=== PATIENT | male | born 1960 | race African-American/Black ===

== ENCOUNTER 2018-02-01 11:16 | Inpatient (IN) | payer OTHER ==
[~2018-02-01] VITALS: Ht 170.2 cm; Wt 57.6 kg
[2018-02-01 11:24] VITALS: BP 185/103
[2018-02-01 12:10] LABS: BASOPHILS % (AUTO) 1.5 % (0.0-2.0); EOSINOPHILS % (AUTO) 0.8 % (0.0-3.0); HEMATOCRIT 57.2 % (42.0-52.0); LYMPHOCYTES % (AUTO) 16.9 % (20.0-45.0); MEAN CORPUSCULAR VOLUME 85 FL (80-99); MONOCYTES % (AUTO) 13.9 % (1.0-10.0); PLATELET COUNT 259 K/UL (150-450); RED BLOOD COUNT 6.73 M/UL (4.70-6.10); RED CELL DISTRIBUTION WIDTH 13.6 % (11.6-14.8); WHITE BLOOD COUNT 10.3 K/UL (4.8-10.8)
[2018-02-01 12:16] LABS: ANION GAP 10 mmol/L (5-15); BLOOD UREA NITROGEN 14 mg/dL (7-18); CALCIUM 10.3 MG/DL (8.5-10.1); CARBON DIOXIDE 28 MMOL/L (21-32); CHLORIDE 97 MMOL/L (98-107); CREATININE 0.9 MG/DL (0.55-1.30); POTASSIUM 4.1 MMOL/L (3.5-5.1); SODIUM 135 MMOL/L (136-145)
[2018-02-01 12:20] LABS: ALANINE AMINOTRANSFERASE 27 U/L (12-78); ALBUMIN 3.9 G/DL (3.4-5.0); ALBUMIN/GLOBULIN RATIO 0.9 (1.0-2.7); ALKALINE PHOSPHATASE 95 U/L (46-116); ASPARTATE AMINO TRANSFERASE 18 U/L (15-37); BILIRUBIN,TOTAL 0.6 MG/DL (0.2-1.0)
[2018-02-01] MEDS ORDERED: Morphine Sulfate 4mg/ml Inj (IV USE ONLY) IVP ONE (12:30)
--- NOTE | 2018-02-01 13:20 | Diagnostic Imaging Report ---
Indication: Chest pain Technique: One view of the chest Comparison: none Findings: Lungs and pleural spaces are clear. Heart size is normal Impression: No acute process
[2018-02-01] MEDS ORDERED: Nitroglycerin Subl 0.4mg tab SL PRN (14:32)
[2018-02-01 14:51] LABS: APPEARANCE,URINE CLEAR; BILIRUBIN, URINE NEGATIVE (NEGATIVE); COLOR,URINE PALE YELLOW; GLUCOSE, URINE (UA) NEGATIVE (NEGATIVE); KETONES,URINE 1+ (NEGATIVE); LEUKOCYTE ESTERASE ,URINE 1+ (NEGATIVE); NITRITE,URINE NEGATIVE (NEGATIVE); PH,URINE 6.5 (4.5-8.0); PROTEIN,URINE 1+ (NEGATIVE); UROBILINOGEN,URINE NORMAL MG/DL (0.0-1.0)
[2018-02-01 15:00] VITALS: BP 170/98
--- NOTE | 2018-02-01 15:29 | Emergency Room Report ---
History of Present Illness General Chief Complaint: Vomiting Source: Patient Present Illness HPI 57-year-old male presents ED complaining of chest pain and abdominal pain which started this morning. Brought in by EMS. Pain is sharp, 7 out of 10, nonradiating. Denies shortness of breath. Notes nausea and vomiting. Notes history of hypertension. Blood pressure elevated as per triage. Denies headache or blurry vision. Denies neck stiffness. No other aggravating relieving factors. Denies any other associated symptoms Allergies: Coded Allergies: No Known Allergies (Unverified , 02/01/18) Patient History Past Medical History: DM, HTN Past Surgical History: none Pertinent Family History: none Social History: Denies: smoking, alcohol use, drug use Immunizations: UTD Reviewed Nursing Documentation: PMH: Agreed; PSxH: Agreed Nursing Documentation-PMH Hx Hypertension: Yes Hx Diabetes: Yes Review of Systems All Other Systems: negative except mentioned in HPI Physical Exam Vital Signs Date Time Temp Pulse Resp B/P (MAP) Pulse Ox O2 Delivery O2 Flow Rate FiO2 02/01/18 11:13 97.8 84 16 185/103 98 Room Air 97.9 Sp02 EP Interpretation: reviewed, normal General Appearance: no apparent distress, alert, GCS 15, non-toxic Head: normocephalic, atraumatic Eyes: bilateral eye normal inspection, bilateral eye PERRL ENT: hearing grossly normal, normal pharynx, no angioedema, normal voice Neck: full range of motion, supple/symm/no masses Respiratory: chest non-tender, lungs clear, normal breath sounds, speaking full sentences Cardiovascular #1: regular rate, rhythm, no edema Cardiovascular #2: 2+ carotid (R), 2+ carotid (L), 2+ radial (R), 2+ radial (L) , 2+ dorsalis pedis (R), 2+ dorsalis pedis (L) Gastrointestinal: normal bowel sounds, non tender, soft, non-distended, no guarding, no rebound Rectal: deferred Genitourinary: normal inspection, no CVA tenderness Musculoskeletal: back normal, gait/station normal, normal range of motion, non- tender Neurologic: alert, oriented x3, responsive, motor strength/tone normal, sensory intact, speech normal Psychiatric: judgement/insight normal, memory normal, mood/affect normal, no suicidal/homicidal ideation Reflexes: 3+ bicep (R), 3+ bicep (L), 3+ tricep (R), 3+ tricep (L), 3+ knee (R) , 3+ knee (L) Skin: normal color, no rash, warm/dry, well hydrated Lymphatic: no adenopathy Medical Decision Making Diagnostic Impression: Primary Impression: Hypertensive urgency Additional Impression: Chest pain Qualified Codes: R07.9 - Chest pain, unspecified ER Course Hospital Course 57-year-old male presents ED complaining of Chest pain, elevated BP Differential diagnoses include: PA/unstable angina, CVA/TIA, hypertensive urgency Clinical course Patient placed on stretcher. on residential monitor. After initial history and physical I ordered labs, EKG, chest x-ray, pain meds labs reviewed- no leukocytosis, hemoglobin/hematocrit stable, electrolytes okay , troponins negative. Chest x-ray- unremarkable EKG - NSR, no acute ischemic changes interpreted by me Case discussed with Dr. Goyal and he agreed to accept the patient to his service for further care and support I. I feel this is a highly complex case requiring extensive working including EKG/Rhythm strip, Xray/CT/US, Blood/urine lab work, repeat exams while in ED, and administration of strong opiates/narcotics for pain control, admission to hospital or close patient follow up. Diagnosis - hypertensive urgency, chest pain admitted to telemetry in serious condition Labs Test 02/01/18 11:40 02/01/18 14:20 White Blood Count 10.3 K/UL (4.8-10.8) Red Blood Count 6.73 M/UL (4.70-6.10) Hemoglobin 19.0 G/DL (14.2-18.0) Hematocrit 57.2 % (42.0-52.0) Mean Corpuscular Volume 85 FL (80-99) Mean Corpuscular Hemoglobin 28.2 PG (27.0-31.0) Mean Corpuscular Hemoglobin Concent 33.1 G/DL (32.0-36.0) Red Cell Distribution Width 13.6 % (11.6-14.8) Platelet Count 259 K/UL (150-450) Mean Platelet Volume 8.4 FL (6.5-10.1) Neutrophils (%) (Auto) 67.0 % (45.0-75.0) Lymphocytes (%) (Auto) 16.9 % (20.0-45.0) Monocytes (%) (Auto) 13.9 % (1.0-10.0) Eosinophils (%) (Auto) 0.8 % (0.0-3.0) Basophils (%) (Auto) 1.5 % (0.0-2.0) Sodium Level 135 MMOL/L (136-145) Potassium Level 4.1 MMOL/L (3.5-5.1) Chloride Level 97 MMOL/L (98-107) Carbon Dioxide Level 28 MMOL/L (21-32) Anion Gap 10 mmol/L (5-15) Blood Urea Nitrogen 14 mg/dL (7-18) Creatinine 0.9 MG/DL (0.55-1.30) Estimat Glomerular Filtration Rate > 60 mL/min (>60) Glucose Level 131 MG/DL (74-106) Calcium Level 10.3 MG/DL (8.5-10.1) Total Bilirubin 0.6 MG/DL (0.2-1.0) Aspartate Amino Transf (AST/SGOT) 18 U/L (15-37) Alanine Aminotransferase (ALT/SGPT) 27 U/L (12-78) Alkaline Phosphatase 95 U/L (46-116) Troponin I 0.007 ng/mL (0.000-0.056) Total Protein 8.2 G/DL (6.4-8.2) Albumin 3.9 G/DL (3.4-5.0) Globulin 4.3 g/dL Albumin/Globulin Ratio 0.9 (1.0-2.7) Lipase 359 U/L (73-393) Urine Color Pale yellow Urine Appearance Clear Urine pH 6.5 (4.5-8.0) Urine Specific [place] 1.015 (1.005-1.035) Urine Protein 1+ (NEGATIVE) Urine Glucose (UA) Negative (NEGATIVE) Urine Ketones 1+ (NEGATIVE) Urine Occult Blood Negative (NEGATIVE) Urine Nitrite Negative (NEGATIVE) Urine Bilirubin Negative (NEGATIVE) Urine Urobilinogen Normal MG/DL (0.0-1.0) Urine Leukocyte Esterase 1+ (NEGATIVE) Urine RBC 0 /HPF (0 - 0) Urine WBC 2-4 /HPF (0 - 0) Urine Squamous Epithelial Cells Occasional /LPF Urine Bacteria Occasional /HPF (NONE) EKG Diagnostic Results Rate: normal Rhythm: NSR ST Segments: no acute changes ASA given to the pt in ED: No Rhythm Strip Diag. Results EP Interpretation: yes Rhythm: NSR, no PVC's, no ectopy Chest X-Ray Diagnostic Results Chest X-Ray Diagnostic Results : Chest X-Ray Ordered: Yes # of Views/Limited/Complete: 1 View Indication: Chest Pain EP Interpretation: Yes Interpretation: no consolidation, no effusion, no pneumothorax, no acute cardiopulmonary disease Impression: No acute disease Electronically Signed by: Electronically signed by Butch Dawn MD Last Vital Signs Date Time Temp Pulse Resp B/P (MAP) Pulse Ox O2 Delivery O2 Flow Rate FiO2 02/01/18 15:00 80 28 170/98 100 Room Air 02/01/18 12:25 97.9 Status: improved Disposition: ADMITTED INPATIENT Condition: Serious Scripts Unable to Obtain Active Prescriptions or Reported Meds Referrals: [facility],REFERRING (PCP) Butch Dawn MD Feb 01, 2018 15:29
[2018-02-01 15:30] VITALS: BP 164/93
[2018-02-01] MEDS: NovoLOG Insulin Flexpen SUBQ SCH ×2 (16:22→21:00)
[2018-02-01] MEDS: metFORMIN 500mg tab ORAL SCH (16:25)
--- NOTE | 2018-02-01 18:45 | History and Physical Report ---
DATE OF ADMISSION: 02/01/2018 REASON FOR ADMISSION: 1. Hypertensive urgency. 2. Chest pain. HISTORY OF PRESENT ILLNESS: The patient is a pleasant 57-year-old gentleman who was being admitted today for further evaluation and management of chest pain that was initiated 3 days prior. The patient says that he actually started some medications 3 days ago when his chest pain started. He does not recall any other medications he takes. He does know he takes blood pressure and diabetic medications. No current nausea, vomiting, or diarrhea. He says that along with the chest pain, he also had some left-sided shoulder weakness and pain. Resting comfortably currently, has not been diagnosed in the past he says with any heart problems. PAST MEDICAL HISTORY: 1. Hypertension. 2. Hyperlipidemia. 3. Diabetes mellitus. PAST SURGICAL HISTORY: Noncontributory. HOME MEDICATIONS: Not known. ALLERGIES: No known drug allergies. FAMILY HISTORY: Positive for hypertension and diabetes. REVIEW OF SYSTEMS: NEUROLOGIC: The patient denies headache, change in vision, syncope OR presyncopal episodes. CARDIOVASCULAR: The patient was having chest pain, but no palpitations. PULMONARY: No difficulty breathing, productive cough, or sputum. GASTROINTESTINAL/GENITOURINARY: No changes in urinary or bowel habits. No nausea, vomiting, or diarrhea. ENDOCRINOLOGY: No night sweats, fevers, or chills. MUSCULOSKELETAL: The patient is complaining of left shoulder fatigue and weakness. PHYSICAL EXAMINATION: GENERAL: The patient is awake, alert, resting in no overt distress. VITAL SIGNS: Blood pressure 185/103, pulse oximetry 100% on room air, pulse of 82, and temperature 97.9 degrees. HEENT: Extraocular muscles intact. No lymphadenopathy. Oropharyngeal mucosa clear and dry. CARDIOVASCULAR: S1 and S2. Regular rate. No rubs or gallops. PULMONARY: Clear to auscultation bilaterally. No rales, rhonchi or wheezes. ABDOMEN: Nondistended and nontender. EXTREMITIES: No edema noted. LABORATORY AND DIAGNOSTIC DATA: Laboratories dated 02/01/2018, white cell count 10.3, hemoglobin 19, hematocrit 57.2, and platelet count 259. Sodium 135, potassium 4.1, and creatinine 0.9. Troponin 0.007. Albumin 3.9. Lipase 359. Urinalysis otherwise negative. ASSESSMENT AND PLAN: 1. Acute coronary syndrome with chest pain. At this time, beta-brenda, aspirin and statin have been initiated. Repeat troponin in 8 hours and Cardiology, Dr. Fuentes to follow. Await further recommendations. 2. Erythrocytosis with elevated hemoglobin, could be secondary to volume depletion. At this time, the patient will be hydrated and hemoglobin recheck in the morning. 3. DVT prophylaxis with Lovenox. 4. Diabetes mellitus. The patient will be continued on metformin along with insulin sliding scale and Accu-Cheks. 5. Hypertensive urgency. At this time, systolic blood pressure 185. The patient will be initiated on metoprolol with p.r.n. clonidine. The patient will be discharged once Cardiology clears patient. Sander Muniz MD DR: GERTRUDIS JOB#: [id number] CC:
[2018-02-01 20:00] VITALS: BP 157/92
[2018-02-01] MEDS ORDERED: Metoprolol 25mg tab ORAL SCH (21:00)
[2018-02-01] MEDS: Docusate 100mg cap ORAL SCH (21:00)
[2018-02-01] MEDS: Atorvastatin 20mg tab ORAL SCH (21:37)
[2018-02-01] MEDS: Carvedilol 6.25mg Tab ORAL SCH (21:42)
[2018-02-02] VITALS: BP 161/92
--- NOTE | 2018-02-02 | Consultation ---
DATE OF CONSULTATION: 02/01/2018 CARDIOLOGY CONSULT CONSULTING PHYSICIAN: Alexis Fuentes M.D. REFERRING PHYSICIAN: Sander Muniz M.D. REASON FOR CONSULTATION: Chest pain and uncontrolled blood pressure. HISTORY OF PRESENT ILLNESS: This is a 57-year-old male. He has a longstanding history of hypertension and poor medication compliance due to running out of medications as well as forgetting to take them at times as well. He has other risk factors for coronary disease and is not even aware of his exact medication regimen he came to the emergency room today complaining of chest pain, left shoulder pain, some shortness of breath, and was noted to have significant blood pressure elevations as well as an abnormal resting electrocardiogram. His initial troponin level x2 were negative. PAST MEDICAL HISTORY: Includes hypertension, hyperlipidemia, type 2 diabetes mellitus, and degenerative disk disease. MEDICATIONS: Prior to admission, not clear. ALLERGIES: None. FAMILY HISTORY: Notable for hypertension and diabetes in first-degree relatives. SOCIAL HISTORY: He is an active smoker. He admits to social alcohol. He admits to crystal meth use. REVIEW OF SYSTEMS: A 10-point review of systems performed. All systems negative other than noted above. PHYSICAL EXAM: GENERAL: Awake, alert, and lying flat, in no respiratory distress. VITAL SIGNS: In the emergency room were blood pressure 185/103, pulse 84, and respirations 16. Presently, blood pressure 164/93, pulse 67, respirations 20, and afebrile. Room air oxygen sat is 97 to 100%, but well-appearing, in no distress. NECK: Conjunctiva pink. No arcus. Oropharynx clear. NECK: Supple. No adenopathy. Mucous membranes dry. Jugular venous pressure normal. LUNGS: Clear. CARDIAC: Regular rhythm and rate. Normal S1, S2 with a fourth heart sound. ABDOMEN: Soft and nontender with no bruits. EXTREMITIES: Reveal good pulses with no edema. DIAGNOSTIC DATA: Chest x-ray with no acute process. EKG sinus rhythm, left ventricular hypertrophy, repolarization changes, possible septal infarction versus pseudo infarct pattern. Laboratories notable for white count 10 and hemoglobin 19. Troponin 0.007 and subsequently, 0.037. Potassium 4.1, creatinine 0.9, and sodium 135. IMPRESSION: 1. Acute coronary syndrome precipitated by uncontrolled blood pressure and substance abuse in the setting of underlying diastolic dysfunction. 2. Hypertensive urgency. 3. Polycythemia likely due to volume depletion and possibly chronic obstructive pulmonary disease. 4. Type 2 diabetes mellitus. 5. History of hyperlipidemia. 6. History of smoking and chronic obstructive pulmonary disease. PLAN: 1. Recommend cardiac monitoring. 2. Serial troponins. 3. Check lipid panel. 4. Check thyroid function. 5. Stepwise titration of antihypertensives in a slow pattern to avoid precipitous drops and orthostasis. 6. Volume resuscitation. 7. Avoid stress testing in view of recent crystal meth use. 8. The patient will be also started on anti-platelet therapy with aspirin. Alexis Fuentes M.D. DR: YU JOB#: [id number] CC: MEDINA
[2018-02-02 04:00] VITALS: BP 162/96
[2018-02-02] MEDS: metFORMIN 500mg tab ORAL SCH ×3 (06:21→17:21)
[2018-02-02] MEDS: Docusate 100mg cap ORAL SCH ×2 (06:22→20:26)
[2018-02-02] MEDS: NovoLOG Insulin Flexpen SUBQ SCH ×4 (06:26→21:00)
[2018-02-02 06:28] LABS: BASOPHILS % (AUTO) 1.3 % (0.0-2.0); LYMPHOCYTES % (AUTO) 19.6 % (20.0-45.0); MEAN CORPUSCULAR VOLUME 85 FL (80-99); MONOCYTES % (AUTO) 11.1 % (1.0-10.0); PLATELET COUNT 247 K/UL (150-450); RED BLOOD COUNT 6.39 M/UL (4.70-6.10); RED CELL DISTRIBUTION WIDTH 13.7 % (11.6-14.8)
[2018-02-02 06:42] LABS: ANION GAP 7 mmol/L (5-15); BLOOD UREA NITROGEN 11 mg/dL (7-18); CALCIUM 8.8 MG/DL (8.5-10.1); CARBON DIOXIDE 29 MMOL/L (21-32); CHLORIDE 102 MMOL/L (98-107); CREATININE 0.9 MG/DL (0.55-1.30); POTASSIUM 4.1 MMOL/L (3.5-5.1); SODIUM 138 MMOL/L (136-145)
[2018-02-02 07:43] LABS: CHOLESTEROL 170 MG/DL (< 200); CREATINE KINASE 108 U/L (26-308); HDL CHOLESTEROL 62 MG/DL (40-60); TRIGLYCERIDES 63 MG/DL (30-150)
--- NOTE | 2018-02-02 07:55 | Nephrology Progress Note ---
Assessment/Plan Assessment/Plan A/P 1) ACS/Chest pain - patient had done crystal meth - BP better, serial Trop's and stress test - appreciate cardiology assistance 2) HTN- much improved. Monitor for now 3) Left arm weakness- cslt neurology - CPK levels pending 4) DM- on metformin and ISS 5) DVT prophylaxsis with lovenox Subjective Date patient seen: Feb 02, 2018 Time patient seen: 07:48 ROS Limited/Unobtainable: No Constitutional: Reports: other - left arm weakness Allergies: Coded Allergies: No Known Allergies (Unverified , 02/01/18) All Systems: reviewed and negative except above Subjective Patient feeling better Objective Last 24 Hour Vital Signs Date Time Temp Pulse Resp B/P (MAP) Pulse Ox O2 Delivery O2 Flow Rate FiO2 02/02/18 06:21 162/96 02/02/18 04:00 97.7 76 20 162/96 (118) 98 97.7 02/02/18 04:00 78 02/02/18 01:06 82 157/92 02/02/18 00:00 73 02/02/18 00:00 98.0 76 18 161/92 (115) 98 98.0 02/01/18 22:14 95 Room Air 21 02/01/18 22:12 82 20 Room Air 21 02/01/18 21:42 64 157/92 02/01/18 21:00 Room Air 02/01/18 20:00 98.0 64 20 157/92 (113) 99 98.0 02/01/18 20:00 82 02/01/18 16:00 82 02/01/18 15:52 Room Air 02/01/18 15:30 98.4 67 20 164/93 (116) 97 98.4 02/01/18 15:00 80 28 170/98 100 Room Air 02/01/18 14:45 97.9 82 17 170/98 100 Room Air 208.2 02/01/18 12:25 97.9 02/01/18 11:24 97.9 82 17 185/103 100 Room Air 97.9 02/01/18 11:13 97.8 84 16 185/103 98 Room Air 97.9 Intake and Output 02/01/18 02/02/18 19:00 07:00 Intake Total 244 ml Balance 244 ml Intake Oral 0 ml IV Total 244 ml # Voids 3 Laboratory Tests 02/01/18 11:40: White Blood Count 10.3, Red Blood Count 6.73H, Hemoglobin 19.0*H, Hematocrit 57.2H, Mean Corpuscular Volume 85, Mean Corpuscular Hemoglobin 28.2, Mean Corpuscular Hemoglobin Concent 33.1, Red Cell Distribution Width 13.6, Platelet Count 259, Mean Platelet Volume 8.4, Neutrophils (%) (Auto) 67.0, Lymphocytes (% ) (Auto) 16.9L, Monocytes (%) (Auto) 13.9H, Eosinophils (%) (Auto) 0.8, Basophils (%) (Auto) 1.5, Sodium Level 135L, Potassium Level 4.1, Chloride Level 97L, Carbon Dioxide Level 28, Anion Gap 10, Blood Urea Nitrogen 14, Creatinine 0.9, Estimat Glomerular Filtration Rate > 60, Glucose Level 131H, Calcium Level 10.3H, Total Bilirubin 0.6, Aspartate Amino Transf (AST/SGOT) 18, Alanine Aminotransferase (ALT/SGPT) 27, Alkaline Phosphatase 95, Troponin I 0.007, Total Protein 8.2, Albumin 3.9, Globulin 4.3, Albumin/Globulin Ratio 0.9L , Lipase 359 02/01/18 14:20: Urine Color Pale yellow, Urine Appearance Clear, Urine pH 6.5, Urine Specific [place] 1.015, Urine Protein 1+H, Urine Glucose (UA) Negative, Urine Ketones 1+H , Urine Occult Blood Negative, Urine Nitrite Negative, Urine Bilirubin Negative , Urine Urobilinogen Normal, Urine Leukocyte Esterase 1+H, Urine RBC 0, Urine WBC 2-4, Urine Squamous Epithelial Cells Occasional, Urine Bacteria Occasional, Urine Opiates Screen Negative, Urine Barbiturates Screen Negative, Phencyclidine (PCP) Screen Negative, Urine Amphetamines Screen PositiveH, Urine Benzodiazepines Screen Negative, Urine Cocaine Screen Negative, Urine Marijuana (THC) Screen PositiveH 02/01/18 20:15: Troponin I 0.037 02/02/18 05:45: White Blood Count 8.0, Red Blood Count 6.39H, Hemoglobin 17.0, Hematocrit 54.0H , Mean Corpuscular Volume 85, Mean Corpuscular Hemoglobin 26.7L, Mean Corpuscular Hemoglobin Concent 31.6L, Red Cell Distribution Width 13.7, Platelet Count 247, Mean Platelet Volume 7.4, Neutrophils (%) (Auto) 67.0, Lymphocytes (%) (Auto) 19.6L, Monocytes (%) (Auto) 11.1H, Eosinophils (%) (Auto ) 1.0, Basophils (%) (Auto) 1.3, Sodium Level 138, Potassium Level 4.1, Chloride Level 102, Carbon Dioxide Level 29, Anion Gap 7, Blood Urea Nitrogen 11 , Creatinine 0.9, Estimat Glomerular Filtration Rate > 60, Glucose Level 128H, Calcium Level 8.8, Total Creatine Kinase 108, Triglycerides Level 63, Cholesterol Level 170, LDL Cholesterol 98, HDL Cholesterol 62H, Cholesterol/HDL Ratio 2.7L Height (Feet): 5 Height (Inches): 7.00 Weight (Pounds): 133 General Appearance: WD/WN, no apparent distress EENT: PERRL/EOMI Neck: non-tender Cardiovascular: normal peripheral pulses, normal rate Respiratory/Chest: chest wall non-tender, lungs clear, normal breath sounds Abdomen: normal bowel sounds, non tender Edema: no edema noted Arm (L), no edema noted Arm (R), no edema noted Leg (L), no edema noted Leg (R), no edema noted Pedal (L), no edema noted Pedal (R), no edema noted Generalized Sander Muniz M.D. Feb 02, 2018 07:55
[2018-02-02 08:00] VITALS: BP 113/56
[2018-02-02] MEDS: Aspirin Baby 81mg ORAL SCH (09:57)
[2018-02-02] MEDS: Carvedilol 6.25mg Tab ORAL SCH ×2 (09:57→20:26)
[2018-02-02] MEDS: Enoxaparin 40mg Inj SUBQ SCH (09:58)
[2018-02-02 12:00] VITALS: BP 153/94
[2018-02-02 16:00] VITALS: BP 140/76
[2018-02-02 20:00] VITALS: BP 154/70
[2018-02-02] MEDS: Atorvastatin 20mg tab ORAL SCH (20:26)
[2018-02-03] VITALS: BP 147/74
[2018-02-03 04:00] VITALS: BP 139/84
--- NOTE | 2018-02-03 04:32 | Progress Note ---
DATE: 02/02/2018 CARDIOLOGY PROGRESS NOTE SUBJECTIVE: No recurring chest pain. Blood pressure remains elevated, but improved. The patient admits to use of crystal meth prior to admission. He notes some weakness of his left arm. OBJECTIVE: VITAL SIGNS: Blood pressure is 162/96, pulse 76, respiratory rate 20, and afebrile. NECK: Supple. LUNGS: Clear. CARDIAC: Regular. Normal S1 and S2 with a fourth heart sound. ABDOMEN: Soft. EXTREMITIES: No edema. NEUROLOGIC: No apparent neurologic deficits exam. LABORATORY DATA: Troponin levels are negative x3. Total cholesterol 170, LDL 98, and HDL 62. IMPRESSION: 1. Hypertensive urgency with improving control of blood pressure. 2. Substance abuse. 3. Acute coronary insufficiency likely precipitated by crystal meth use and uncontrolled hypertension resulting in coronary vasospasm in the setting of diastolic dysfunction. 4. Type 2 diabetes mellitus. 5. Possible left arm weakness. PLAN: 1. Continue anti-platelet therapy. 2. Further optimize blood pressure control with medication titration. 3. Neurologic evaluation per primary care physician. 4. No plans for stress testing at this time in view of recent use of crystal meth. 5. Outpatient stress test may follow. Alexis Fuentes M.D. DR: THOR JOB#: [id number] CC:
[2018-02-03] MEDS: metFORMIN 500mg tab ORAL SCH ×3 (05:39→16:30)
[2018-02-03] MEDS: NovoLOG Insulin Flexpen SUBQ SCH ×4 (06:30→21:00)
[2018-02-03 07:46] LABS: BASOPHILS % (AUTO) 1.3 % (0.0-2.0); EOSINOPHILS % (AUTO) 1.6 % (0.0-3.0); HEMATOCRIT 51.7 % (42.0-52.0); HEMOGLOBIN 16.8 G/DL (14.2-18.0); LYMPHOCYTES % (AUTO) 24.9 % (20.0-45.0); MEAN CORPUSCULAR VOLUME 85 FL (80-99); MONOCYTES % (AUTO) 10.5 % (1.0-10.0); NEUTROPHILS % (AUTO) 61.7 % (45.0-75.0); PLATELET COUNT 230 K/UL (150-450); RED BLOOD COUNT 6.11 M/UL (4.70-6.10); RED CELL DISTRIBUTION WIDTH 12.9 % (11.6-14.8); WHITE BLOOD COUNT 7.2 K/UL (4.8-10.8)
[2018-02-03 07:55] LABS: ANION GAP 8 mmol/L (5-15); BLOOD UREA NITROGEN 11 mg/dL (7-18); CARBON DIOXIDE 29 MMOL/L (21-32); CHLORIDE 101 MMOL/L (98-107); CREATININE 0.9 MG/DL (0.55-1.30); POTASSIUM 3.7 MMOL/L (3.5-5.1); SODIUM 138 MMOL/L (136-145)
[2018-02-03 08:00] VITALS: BP 150/71
--- NOTE | 2018-02-03 08:10 | Nephrology Progress Note ---
Assessment/Plan Assessment/Plan A/P 1) ACS/Chest pain - patient had done crystal meth - BP better with SBP 139 - appreciate cardiology assistance. Out pt stress test 2) HTN- much improved. 3) Left arm weakness- cslt neurology today as patient still c/o left arm weakness - CPK levels neg 4) DM- on metformin and ISS 5) DVT prophylaxsis with lovenox Patient will be discharged today once cleared by neurology and he can then continue his home medications Subjective Date patient seen: Feb 03, 2018 Time patient seen: 08:08 Allergies: Coded Allergies: No Known Allergies (Unverified , 02/01/18) All Systems: reviewed and negative except above Subjective Patient feeling much better. Still c/o weak left arm pain Objective Last 24 Hour Vital Signs Date Time Temp Pulse Resp B/P (MAP) Pulse Ox O2 Delivery O2 Flow Rate FiO2 02/03/18 04:00 97.7 3 20 139/84 (102) 96 97.7 02/03/18 04:00 62 02/03/18 00:00 68 02/03/18 00:00 98.0 68 19 147/74 (98) 98 98.0 02/02/18 21:00 Room Air 02/02/18 20:26 65 154/70 02/02/18 20:00 78 02/02/18 20:00 98.2 65 19 154/70 (98) 97 98.2 02/02/18 16:21 78 02/02/18 16:00 98.2 72 18 140/76 (97) 100 98.2 02/02/18 12:00 98.7 71 20 153/94 (113) 98 98.7 02/02/18 11:26 71 02/02/18 10:03 66 16 Room Air 21 02/02/18 09:59 60 113/56 02/02/18 09:57 60 113/56 Intake and Output 02/02/18 02/03/18 19:00 07:00 Intake Total 480 ml 26.25 ml Output Total 1000 ml Balance -520 ml 26.25 ml Intake Oral 480 ml IV Total 26.25 ml Output Urine Total 1000 ml # Voids 2 Laboratory Tests 02/03/18 06:35: White Blood Count 7.2, Red Blood Count 6.11H, Hemoglobin 16.8, Hematocrit 51.7, Mean Corpuscular Volume 85, Mean Corpuscular Hemoglobin 27.5, Mean Corpuscular Hemoglobin Concent 32.5, Red Cell Distribution Width 12.9, Platelet Count 230, Mean Platelet Volume 7.8, Neutrophils (%) (Auto) 61.7, Lymphocytes (%) (Auto) 24.9, Monocytes (%) (Auto) 10.5H, Eosinophils (%) (Auto) 1.6, Basophils (%) ( Auto) 1.3, Sodium Level 138, Potassium Level 3.7, Chloride Level 101, Carbon Dioxide Level 29, Anion Gap 8, Blood Urea Nitrogen 11, Creatinine 0.9, Estimat Glomerular Filtration Rate > 60, Glucose Level 154H, Calcium Level 9.0 Height (Feet): 5 Height (Inches): 7.00 Weight (Pounds): 127 General Appearance: WD/WN, no apparent distress EENT: PERRL/EOMI, normal ENT inspection Neck: non-tender, normal alignment Cardiovascular: normal rate, regular rhythm Respiratory/Chest: chest wall non-tender, lungs clear, normal breath sounds Abdomen: non tender, soft Edema: no edema noted Arm (L), no edema noted Arm (R), no edema noted Leg (L), no edema noted Leg (R), no edema noted Pedal (L), no edema noted Pedal (R), no edema noted Generalized Sander Muniz M.D. Feb 03, 2018 08:10
[2018-02-03] MEDS: Carvedilol 6.25mg Tab ORAL SCH ×2 (09:51→21:17)
[2018-02-03] MEDS: Aspirin Baby 81mg ORAL SCH (09:51)
[2018-02-03] MEDS: Docusate 100mg cap ORAL SCH ×2 (09:52→21:17)
[2018-02-03] MEDS: Enoxaparin 40mg Inj SUBQ SCH (09:54)
[2018-02-03 12:00] VITALS: BP 141/80
[2018-02-03 16:00] VITALS: BP 157/88
[2018-02-03 20:00] VITALS: BP 148/71
[2018-02-03] MEDS: Atorvastatin 20mg tab ORAL SCH (21:16)
[2018-02-04 04:00] VITALS: BP 152/76
--- NOTE | 2018-02-04 05:46 | Progress Note ---
DATE: 02/03/2018 CARDIOLOGY PROGRESS NOTE SUBJECTIVE: The patient has not had any recurring chest pain. His blood pressure parameters have improved. He did crystal meth prior to admission. He continued to complain of left arm weakness and pain. OBJECTIVE: VITAL SIGNS: Blood pressure 139/84, pulse 62, and respirations 20. LUNGS: Clear. CARDIAC: Regular. ABDOMEN: Soft. EXTREMITIES: No edema. No strength deficit noted. LABORATORY DATA: Troponins negative. IMPRESSION: 1. Acute coronary syndrome precipitated by crystal meth use. 2. Malignant range hypertension, also precipitated by above as well as noncompliance with medications, now stabilized. 3. Possible left-sided upper extremity weakness and pain, rule out cervical disease. PLAN: 1. Await neurologic evaluation. 2. Continue current cardiovascular regimen including anti-platelet therapy. 3. Outpatient stress test in the future once effects of crystal meth have dissipated. 4. The patient counseled regarding the risks of sudden cardiac with crystal meth use. Alexis Fuentes M.D. : STEFANIE JOB#: [id number] CC:
[2018-02-04] MEDS: NovoLOG Insulin Flexpen SUBQ SCH (05:52)
[2018-02-04] MEDS: metFORMIN 500mg tab ORAL SCH (05:53)
--- NOTE | 2018-02-04 07:42 | Nephrology Progress Note ---
Assessment/Plan Assessment/Plan A/P 1) ACS/Chest pain - patient had done crystal meth - BP better. DC today and patient says he wants to continue his home BP meds that he picked up 3 days ago - appreciate cardiology assistance. Out pt stress test 2) HTN- much improved. Continue home BP meds at DC 3) Left arm weakness- Neurology not available. Will DC patient and arrange out patient appointment - CPK levels neg 4) DM- on metformin and ISS 5) DVT prophylaxsis with lovenox Patient will be discharged today with Neurology outpt appt as he is stable and strength in left arm improved Subjective Date patient seen: Feb 04, 2018 Time patient seen: 07:39 ROS Limited/Unobtainable: No Allergies: Coded Allergies: No Known Allergies (Unverified , 02/01/18) Subjective Patient feeling much better. Says left arm feeling better and stronger. Objective Last 24 Hour Vital Signs Date Time Temp Pulse Resp B/P (MAP) Pulse Ox O2 Delivery O2 Flow Rate FiO2 02/04/18 04:00 67 02/04/18 04:00 98.4 63 20 152/76 (101) 96 98.4 02/04/18 00:00 71 02/03/18 21:17 69 148/71 02/03/18 21:00 Room Air 02/03/18 20:00 98.0 69 20 148/71 (96) 96 98.0 02/03/18 20:00 69 02/03/18 16:00 97.5 76 22 157/88 (111) 98 97.5 02/03/18 16:00 67 02/03/18 12:00 79 02/03/18 12:00 98.4 68 21 141/80 (100) 99 98.4 02/03/18 09:51 66 150/71 02/03/18 09:51 66 150/71 02/03/18 09:00 Room Air 02/03/18 08:00 97.7 66 22 150/71 (97) 99 97.7 02/03/18 08:00 66 Intake and Output 02/03/18 02/04/18 19:00 07:00 Intake Total 240 ml Output Total 1700 ml Balance -1460 ml Intake Oral 240 ml Output Urine Total 1700 ml Height (Feet): 5 Height (Inches): 7.00 Weight (Pounds): 127 General Appearance: WD/WN, no apparent distress EENT: PERRL/EOMI Neck: non-tender, normal alignment Cardiovascular: normal rate, regular rhythm Respiratory/Chest: lungs clear, normal breath sounds Abdomen: non tender, soft Edema: no edema noted Arm (L), no edema noted Arm (R), no edema noted Leg (L), no edema noted Leg (R), no edema noted Pedal (L), no edema noted Pedal (R), no edema noted Generalized Sander Muniz M.D. Feb 04, 2018 07:42
--- NOTE | 2018-02-04 07:45 | Discharge Instructions ---
Discharge Instructions Discharge Instructions Diet: 2 GM sodium (low sodium), diabetic calorie control Resume Normal Activity?: Yes Activity: light activity Pneumonia Vaccine: vaccine not indicated Influenza Vaccine (Mar to Aug): vaccine not indicated Follow Up Orders Follow up with Dr Falk Neurology 1 week Continue his home medications for DM and HTN No METH usage For Congestive Heart Failure Reminder Report to your physician any weight gain of 5 pounds or more in one week. Sander Muniz M.D. Feb 04, 2018 07:44
[2018-02-04 08:00] VITALS: BP 155/85
[2018-02-04] MEDS: Docusate 100mg cap ORAL SCH (08:48)
[2018-02-04] MEDS: Enoxaparin 40mg Inj SUBQ SCH ×2 (08:48→08:56)
[2018-02-04 08:49] VITALS: BP 152/76
[2018-02-04] MEDS: Aspirin Baby 81mg ORAL SCH (08:49)
[2018-02-04] MEDS: Carvedilol 6.25mg Tab ORAL SCH (08:49)
--- NOTE | 2018-02-04 17:00 | Progress Note ---
DATE: 02/04/2018 CARDIOLOGY PROGRESS NOTE SUBJECTIVE: No recurring chest pain. No shortness of breath. Left arm pain and weakness improved. OBJECTIVE: VITAL SIGNS: Blood pressure 152/76, pulse 63, and respirations 20. LUNGS: Clear. CARDIAC: Regular. Normal S1, S2 with a fourth heart sound. ABDOMEN: Soft. EXTREMITIES: No edema. NEUROLOGIC: Strength grossly symmetric. IMPRESSION: 1. Acute coronary syndrome resolved and likely precipitated by crystal meth use. 2. Substance abuse. 3. Hypertensive heart disease with hypertensive urgency, resolved, likely due to noncompliance and drug use. 4. Left arm pain and weakness likely cervical radiculopathy, improved. PLAN: 1. Outpatient followup. 2. Drug abstinence stressed. 3. Risk of sudden cardiac discussed. 4. Compliance with antihypertensives and antianginals reviewed as well. Alexis Fuentes M.D. DR: YU JOB#: [id number] CC:
--- NOTE | 2018-02-05 12:52 | Discharge Summary ---
Discharge Summary Discharge Summary _ DATE OF ADMISSION: 02/01/2018 DATE OF DISCHARGE: 02/04/2018 CONSULTANTS: Dr. Alexis Fuentes BRIEF HOSPITAL COURSE: Patient is a 58-year-old gentleman, who was brought in by EMS, presented to ED for chest pain and hypertension. Chest pain started 3 days prior. He took medications however, could not recall the name of the medications he took. He had nausea and vomiting. His chest pain persisted and had left sided shoulder weakness and pain. He denied any headache or blurry vision. Denied neck stiffness. He has medical history significant for hypertension and diabetes mellitus. On evaluation at ED, blood pressure was elevated 185/103. Blood work was stable , except for erythrocytosis. Initial troponin was negative. He had an EKG done that showed normal sinus rhythm with no acute ischemic changes. Chest x- ray was unremarkable. Due to his risk factors he was admitted for evaluation of acute coronary syndrome. He underwent cardiac monitoring. Serial troponins were monitored. He was placed on Lovenox for DVT prophylaxis. Blood glucose was monitored and was given metformin and insulin sliding scale. Blood pressure was elevated and was started on metoprolol with prn clonidine. He underwent cardiac evaluation. Troponins were negative. Lipid panel showed total cholesterol 170, LDL 98, HDL 62. Patient admits to recent crystal meth use. He was continued on aspirin and was eventually started on Norvasc for better blood pressure control, dose was increased to 10 mg daily. He was given Lipitor 40 mg daily at bedtime. Unable to do stress testing in view of recent crystal meth use. He was strongly counseled against use of crystal meth and regarding risk of sudden cardiac with crystal meth use. He was recommended outpatient stress test in the future once the effects of crystal meth have dissipated. He complained of left arm weakness, however neurology was not available. He was arranged for an outpatient appointment. Left arm was stable and strength has improved. CPK was normal. He was then discharged home. FINAL DIAGNOSES: ACS resolved, likely precipitated by crystal meth use Hypertension Hypertensive heart disease with hypertensive urgency, resolved, likely due to noncompliance and drug use Left arm pain and weakness likely cervical radiculopathy, improved Diabetes mellitus type 2 Substance abuse Erythrocytosis, secondary to volume depletion DISPOSITION: Patient was discharged home. DISCHARGE INSTRUCTIONS: Follow up with PCP in a week. Continue medications for blood pressure and diabetes. Follow-up with neurologist, Dr. Falk in a week. I have been assigned to dictate discharge summary on this account, and I was not involved in the patient's management. Yesi Walden NP Feb 05, 2018 12:52
== END 2018-02-04 11:13 | disposition home or self-care (01) | DRG 198 ==
LOC: EDBD 11:16 → EMR 12:03 → EDBEDREQ 14:03 → 2E 14:14
DX: I24.9 Acute ischemic heart disease, unspecified (principal); I11.9 Hypertensive heart disease without heart failure; D75.1 Secondary polycythemia; E11.9 Type 2 diabetes mellitus without complications; F15.10 Other stimulant abuse, uncomplicated; I16.0 Hypertensive urgency; M54.12 Radiculopathy, cervical region; E78.5 Hyperlipidemia, unspecified; F17.200 Nicotine dependence, unspecified, uncomplicated; J44.9 Chronic obstructive pulmonary disease, unspecified; Z91.14 Patient's other noncompliance with medication regimen
CPT/HCPCS: 36415; 71045; 80048; 80053; 80061; 80307; 81003; 82550; 82962; 83690; 84484; 85025; 93005; 94664; 94760; 99285; J1815; J2405

== ENCOUNTER 2020-04-01 20:19 | Emergency (ER) | payer OTHER ==
[~2020-04-01] VITALS: Ht 170.2 cm; Wt 70.3 kg
[2020-04-01 20:30] VITALS: BP 128/77
[2020-04-01] MEDS ORDERED: Solu-MEDROL 125mg Inj IVP ONE (20:45)
[2020-04-01 20:58] LABS: BASOPHILS % (AUTO) 1.8 % (0.0-2.0); EOSINOPHILS % (AUTO) 0.5 % (0.0-3.0); HEMATOCRIT 40.2 % (42.0-52.0); HEMOGLOBIN 12.2 G/DL (14.2-18.0); LYMPHOCYTES % (AUTO) 18.1 % (20.0-45.0); MEAN CORPUSCULAR VOLUME 72 FL (80-99); MONOCYTES % (AUTO) 13.7 % (1.0-10.0); NEUTROPHILS % (AUTO) 65.9 % (45.0-75.0); PLATELET COUNT 272 K/UL (150-450); RED BLOOD COUNT 5.57 M/UL (4.70-6.10); RED CELL DISTRIBUTION WIDTH 17.4 % (11.6-14.8); WHITE BLOOD COUNT 7.5 K/UL (4.8-10.8)
[2020-04-01 21:05] LABS: INR 1.4 (0.9-1.1)
[2020-04-01 21:06] LABS: ANION GAP 13 mmol/L (5-15); BLOOD UREA NITROGEN 41 mg/dL (7-18); CALCIUM 9.1 MG/DL (8.5-10.1); CARBON DIOXIDE 24 MMOL/L (21-32); CHLORIDE 96 MMOL/L (98-107); CREATININE 2.2 MG/DL (0.55-1.30); POTASSIUM 4.7 MMOL/L (3.5-5.1); SODIUM 133 MMOL/L (136-145)
[2020-04-01 21:21] LABS: ALANINE AMINOTRANSFERASE 29 U/L (12-78); ALBUMIN 2.7 G/DL (3.4-5.0); ALBUMIN/GLOBULIN RATIO 0.8 (1.0-2.7); ALKALINE PHOSPHATASE 158 U/L (46-116); ASPARTATE AMINO TRANSFERASE 37 U/L (15-37); BILIRUBIN,TOTAL 2.5 MG/DL (0.2-1.0); CREATINE KINASE 112 U/L (26-308); FERRITIN 63 NG/ML (8-388); LACTATE DEHYDROGENASE 270 U/L (81-234)
[2020-04-01 21:22] LABS: BILIRUBIN,DIRECT 1.8 MG/DL (0.0-0.3)
--- NOTE | 2020-04-01 21:27 | Diagnostic Imaging Report ---
EXAM: XR Chest, 1 View CLINICAL HISTORY: CP TECHNIQUE: Frontal view of the chest. COMPARISON: No previous study. FINDINGS: Lungs: Subsegmental atelectasis, scarring versus residual pneumonia left midlung. Right lung is well aerated. Pleural space: Unremarkable. No pneumothorax. Heart: There is cardiomegaly. Mediastinum: Unremarkable. Bones/joints: Osteopenia. The ribs are unremarkable. IMPRESSION: 1. Cardiomegaly. 2. Probable subsegmental atelectasis left midlung zone and at the left lung base. 3. Osteopenia.
[2020-04-01] MEDS ORDERED: Nitroglycerin 2% oint pkt TOPIC ONE (21:45)
[2020-04-01 21:49] LABS: APPEARANCE,URINE SLIGHTLY CLOUDY; BILIRUBIN, URINE 1+ (NEGATIVE); GLUCOSE, URINE (UA) 1+ (NEGATIVE); KETONES,URINE 1+ (NEGATIVE); LEUKOCYTE ESTERASE ,URINE 3+ (NEGATIVE); NITRITE,URINE NEGATIVE (NEGATIVE); PH,URINE 5 (4.5-8.0); PROTEIN,URINE 2+ (NEGATIVE); UROBILINOGEN,URINE 8 MG/DL (0.0-1.0)
[2020-04-01 21:51] LABS: COLOR,URINE YELLOW
--- NOTE | 2020-04-01 22:10 | Emergency Room Report ---
History of Present Illness General Chief Complaint: Chest Pain Source: Patient Present Illness HPI Patient presents with left-sided chest pain. He says he has it at rest and also with exertion. He also has shortness of breath. He says he does have inhalers that do not help him. According to paramedics he also admits to being noncompliant with his medications. Apparently he is supposed be taking medications for hypertension. The patient states he had a heart attack last year and has 2 stents. The patient denies fever, chills, diaphoresis, nausea, vomiting or diarrhea. After nitroglycerin he says he is pain-free. At the time his legs were hurting more at 7-9/10 in the chest but he was concerned about the chest pain. The patient admits to doing cocaine. The patient was complaining about swelling in his right nose. He felt it was large mucoid collection and ended up trying to pull it out with tweezers and then cut it out with the razor blade 3 days ago. He has difficulty breathing through that side of his nose. The patient was evaluated 2 weeks ago apparently. He signed out AGAINST MEDICAL ADVICE at that time. The patient denies known exposure to Covid positive contacts. He is out on the streets however. No sore throat, palpitations, nausea, vomiting, diarrhea, dysuria, abdominal pain, joint pain, anxiety, visual changes, dizziness, headache. See further history and medical decision making.. Allergies: Coded Allergies: No Known Allergies (Unverified , 02/01/18) COVID-19 Screening Contact w/high risk pt: No Experienced COVID-19 symptoms?: No COVID-19 Testing performed TALENT RECRUITER: No Patient History Past Medical History: see triage record Social History: Reports: smoking, drug use - cocaine Social History Narrative living in with family Reviewed Nursing Documentation: PMH: Agreed; PSxH: Agreed Nursing Documentation-PMH Hx Hypertension: Yes Hx Diabetes: Yes Review of Systems All Other Systems: negative except mentioned in HPI Physical Exam Vital Signs Date Time Temp Pulse Resp B/P (MAP) Pulse Ox O2 Delivery O2 Flow Rate FiO2 04/01/20 20:21 98.1 98 18 129/83 (98) 99 Room Air Sp02 EP Interpretation: reviewed, normal General Appearance: well appearing, no apparent distress, GCS 15, non-toxic Head: normocephalic Eyes: bilateral eye PERRL, bilateral eye EOMI, bilateral eye Scleral Injection ENT: moist mucus membranes - poor dentition, other - nasal abrasion and polyp Neck: supple Respiratory: crackles, wheezing - minimal exp Cardiovascular #1: regular rate, rhythm, edema - 2+ pitting bilaterally Cardiovascular #2: 2+ radial (R) Gastrointestinal: normal inspection, non tender, no mass, non-distended, decreased bowel sounds Genitourinary: no CVA tenderness Musculoskeletal: back normal, normal range of motion, no calf tenderness Neurologic: alert, oriented x3, grossly normal Psychiatric: depressed affect Skin: warm/dry, other - Excoriations lower extremities Medical Decision Making Diagnostic Impression: Primary Impression: Chest pain Qualified Codes: R07.9 - Chest pain, unspecified Additional Impressions: Edema Qualified Codes: R60.9 - Edema, unspecified Cocaine abuse CHF (congestive heart failure) Qualified Codes: I50.9 - Heart failure, unspecified UTI (urinary tract infection) Qualified Codes: N30.00 - Acute cystitis without hematuria Renal insufficiency COPD (chronic obstructive pulmonary disease) Qualified Codes: J44.9 - Chronic obstructive pulmonary disease, unspecified Methamphetamine associated CHF ER Course Patient with known cardiac disease and cocaine abuse presents with chest pain and shortness of breath. Differential includes acute myocardial infarction, congestive heart failure, COPD exacerbation, noncompliance, pulmonary embolus amongst others. Patient evaluated with EKG, chest x-ray and labs. Patient initially treated with Solu-Medrol. Covid testing performed. Patient placed on a garden labourer. Patient states she is pain-free right now. Consideration for aspirin and nitroglycerin paste in the future. Also consideration for treating with morphine. EKG sinus rhythm with left axis deviation left atrial enlargement prolonged QT interval and possibly old inferior OK. Chest x-ray cardiomegaly and some reversal of flow with atelectasis no infiltrates. Labs with renal insufficiency. Negative troponin. Pyuria. Talk screen positive for cocaine. Elevated BNP. Aspirin and nitroglycerin paste given to the patient. In addition Lasix ordered. IV hydration stopped. Robitussin codeine for cough. Discussed with Dr. Garay regarding transfer. During discussion of congestive heart failure the patient reports that this was diagnosed previously associated with methamphetamine. He states he is not using methamphetamine at this time. He states that he had improvement with Lasix but this was changed to a different medication in the past. Advised patient to consider attending Cocaine Anonymous meeting when discharged. Patient improved. Stable for transfer. Laboratory Tests Test 04/01/20 20:28 04/01/20 21:43 White Blood Count 7.5 K/UL (4.8-10.8) Red Blood Count 5.57 M/UL (4.70-6.10) Hemoglobin 12.2 G/DL (14.2-18.0) L Hematocrit 40.2 % (42.0-52.0) L Mean Corpuscular Volume 72 FL (80-99) L Mean Corpuscular Hemoglobin 22.0 PG (27.0-31.0) L Mean Corpuscular Hemoglobin Concent 30.4 G/DL (32.0-36.0) L Red Cell Distribution Width 17.4 % (11.6-14.8) H Platelet Count 272 K/UL (150-450) Mean Platelet Volume 7.6 FL (6.5-10.1) Neutrophils (%) (Auto) 65.9 % (45.0-75.0) Lymphocytes (%) (Auto) 18.1 % (20.0-45.0) L Monocytes (%) (Auto) 13.7 % (1.0-10.0) H Eosinophils (%) (Auto) 0.5 % (0.0-3.0) Basophils (%) (Auto) 1.8 % (0.0-2.0) Prothrombin Time 15.4 SEC (9.30-11.50) H Prothrombin Time INR 1.4 (0.9-1.1) H Activated Partial Thromboplast Time 23 SEC (23-33) Sodium Level 133 MMOL/L (136-145) L Potassium Level 4.7 MMOL/L (3.5-5.1) Chloride Level 96 MMOL/L (98-107) L Carbon Dioxide Level 24 MMOL/L (21-32) Anion Gap 13 mmol/L (5-15) Blood Urea Nitrogen 41 mg/dL (7-18) H Creatinine 2.2 MG/DL (0.55-1.30) H Estimated Glomerular Filtration Rate 37.1 mL/min (>60) Glucose Level 216 MG/DL (74-106) H Calcium Level 9.1 MG/DL (8.5-10.1) Magnesium Level 1.8 MG/DL (1.8-2.4) Ferritin 63 NG/ML (8-388) Total Bilirubin 2.5 MG/DL (0.2-1.0) H Direct Bilirubin 1.8 MG/DL (0.0-0.3) H Aspartate Amino Transferase (AST) 37 U/L (15-37) Alanine Aminotransferase (ALT) 29 U/L (12-78) Alkaline Phosphatase 158 U/L (46-116) H Lactate Dehydrogenase 270 U/L (81-234) H Total Creatine Kinase 112 U/L (26-308) Troponin I 0.042 ng/mL (0.000-0.056) C-Reactive Protein, Quantitative 3.3 mg/dL (0.00-0.90) H Pro-B-Type Natriuretic Peptide 96500 pg/mL (0-125) H Total Protein 6.3 G/DL (6.4-8.2) L Albumin 2.7 G/DL (3.4-5.0) L Globulin 3.6 g/dL Albumin/Globulin Ratio 0.8 (1.0-2.7) L Lipase 191 U/L (73-393) Serum Alcohol < 3 mg/dL Urine Color Yellow Urine Appearance Slightly cloudy Urine pH 5 (4.5-8.0) Urine Specific Jolon 1.020 (1.005-1.035) Urine Protein 2+ (NEGATIVE) H Urine Glucose (UA) 1+ (NEGATIVE) H Urine Ketones 1+ (NEGATIVE) H Urine Blood 1+ (NEGATIVE) H Urine Nitrite Negative (NEGATIVE) Urine Bilirubin 1+ (NEGATIVE) H Urine Ictotest Pending Urine Urobilinogen 8 MG/DL (0.0-1.0) H Urine Leukocyte Esterase 3+ (NEGATIVE) H Urine RBC 0 /HPF (0 - 0) Urine WBC 30-40 /HPF (0 - 0) H Urine Squamous Epithelial Cells Occasional /LPF Urine Bacteria Few /HPF (NONE) Urine Opiates Screen Negative (NEGATIVE) Urine Barbiturates Screen Negative (NEGATIVE) Phencyclidine (PCP) Screen Negative (NEGATIVE) Urine Amphetamines Screen Negative (NEGATIVE) Urine Benzodiazepines Screen Negative (NEGATIVE) Urine Cocaine Screen Positive (NEGATIVE) H Urine Marijuana (THC) Screen Negative (NEGATIVE) Microbiology Date/Time Source Procedure Growth Status 04/01/20 21:15 Nasopharynx SARS-CoV-2 RdRp Gene Assay - Final Complete EKG Diagnostic Results Troponin ordered: Yes Rate: normal Rhythm: NSR ST Segments: no acute changes - Left axis deviation prolonged QT interval Rhythm Strip Diag. Results EP Interpretation: yes Rhythm: NSR, no PVC's, no ectopy Chest X-Ray Diagnostic Results Chest X-Ray Diagnostic Results : Chest X-Ray Ordered: Yes # of Views/Limited/Complete: 1 View Indication: Other EP Interpretation: Yes Interpretation: no effusion, no pneumothorax, other - Cardiomegaly and atelectasis Impression: Other Electronically Signed by: Electronically signed by Alexis Castellanos MD Last Vital Signs Date Time Temp Pulse Resp B/P (MAP) Pulse Ox O2 Delivery O2 Flow Rate FiO2 04/01/20 23:30 98.3 106 22 121/66 100 Room Air Status: improved Disposition: SHORT-TERM HOSP Condition: Serious Scripts Unable to Obtain Active Prescriptions or Reported Meds Referrals: NON PHYSICIAN (PCP) Alexis Castellanos MD Apr 01, 2020 22:10
[2020-04-01] MEDS ORDERED: cefTRIAXone 1 GM in NS 55 ML IVPB ONE (22:15)
[2020-04-01 22:30] VITALS: BP 122/90
[2020-04-01] MEDS ORDERED: guaiFENesin w/Codeine 5ml Liq ud ORAL PRN (22:45)
[2020-04-01 23:30] VITALS: BP 121/66
--- NOTE | 2020-04-04 20:54 | Cardiology Report ---
APPROVED REPORT EKG Measurement Heart [id number] <Conclusion> Normal sinus rhythm Possible Left atrial enlargement Left axis deviation Inferior infarct, age undetermined Anteroseptal infarct, age undetermined T wave abnormality, consider lateral ischemia Prolonged QT Abnormal ECG
== END 2020-04-01 23:30 | disposition short-term general hospital (02) ==
LOC: EMR 20:43
DX: R07.9 Chest pain, unspecified (principal); R60.9 Edema, unspecified; F14.10 Cocaine abuse, uncomplicated; N30.00 Acute cystitis without hematuria; N28.9 Disorder of kidney and ureter, unspecified; J44.9 Chronic obstructive pulmonary disease, unspecified; I11.0 Hypertensive heart disease with heart failure; I50.9 Heart failure, unspecified; E11.9 Type 2 diabetes mellitus without complications; Z91.14 Patient's other noncompliance with medication regimen; I25.2 Old myocardial infarction; Z95.5 Presence of coronary angioplasty implant and graft; S00.31XA Abrasion of nose, initial encounter; J33.9 Nasal polyp, unspecified; I51.7 Cardiomegaly; J98.11 Atelectasis; M85.80 Other specified disorders of bone density and structure, unspecified site
CPT/HCPCS: 36415; 71045; 80053; 80307; 81003; 82248; 82550; 82728; 83615; 83690; 83735; 83880; 84484; 85025; 85610; 85730; 86140; 87086; 87181; 87491; 87590; 93005; 96361; 96365; 96375; G0480; J0696; J1940; J2930; J7030; U0002; Z7502; 99284